=== PATIENT | female | born 1950 ===

== ENCOUNTER 2022-10-25 15:57 | Inpatient (IN) | payer OTHER ==
[2022-10-25] VITALS (14 sets, daily range): BP systolic 162–2220; BP diastolic 10–111
[~2022-10-25] VITALS: Ht 162.6 cm; Wt 45.8 kg
[2022-10-25 17:05] LABS: BASO % 0.4 % (0.0-1.0); EOS # 0.1 10*3/uL (0.0-0.4); EOS % 1.2 % (1.0-4.0); LYMPH # 1.6 10*3/uL (1.3-4.4); LYMPH % 23.4 % (27.0-41.0); MEAN CELL VOLUME 98.1 fl (81.0-99.0); MEAN CORPUSCULAR HGB 33.6 pg (27.0-31.0); MEAN CORPUSCULAR HGB CONC 34.3 g/dl (33.0-37.0); MEAN PLATELET VOLUME 10.3 fl (9.6-12.3); MONO # 0.6 10*3/uL (0.1-1.0); MONO % 8.1 % (3.0-9.0); NEUT # 4.5 10*3/uL (2.3-7.9); NEUT % 66.8 % (47.0-73.0); PLATELET COUNT AUTOMATED 207 10*3/uL (130-400); RED BLOOD COUNT 4.79 10*6/uL (4.10-5.10); RED CELL DISTRI WIDTH 12.6 % (0-14.5); WHITE BLOOD COUNT 6.8 10*3/uL (4.8-10.8)
[2022-10-25 17:34] LABS: ALKALINE PHOSPHATASE 103 U/L (46-116); BUN 10 mg/dl (9-23); CHLORIDE 104 mmol/L (98-107); POTASSIUM 4.2 mmol/L (3.4-5.1); SGPT/ALT 34 U/L (10-49); TOTAL PROTEIN 6.5 gm/dL (6.0-8.0)
[2022-10-25] MEDS ORDERED: Lopressor25 MG PO (18:35)
[2022-10-25] MEDS ORDERED: ASPIRIN ADULT L81 M1 PO (18:36)
[2022-10-25 19:29] LABS: BILIRUBIN Negative (Negative); BLOOD Negative (Negative); CLARITY Clear (Clear); COLOR Yellow (Yellow); GLUCOSE Negative (Negative); KETONE Trace (Negative); LEUKO ESTERASE Negative (Negative); NITRITE Negative (Negative); PH 7.5 (4.5-8.0); UROBILINOGEN 0.2 E.U./dl (0.0-1.0)
[2022-10-25 19:39] LABS: BACTERIA TRACE; EPITHELIAL CELLS 0-2; RBC 0-2 rbc/hpf (0-2); WBC 0-2 wbc/hpf (0-5)
[2022-10-26] VITALS (7 sets, daily range): BP systolic 112–188; BP diastolic 64–90
[2022-10-26 06:18] LABS: BASO % 0.6 % (0.0-1.0); EOS # 0.1 10*3/uL (0.0-0.4); EOS % 1.1 % (1.0-4.0); HEMATOCRIT 46.1 % (37.0-47.0); LYMPH # 1.8 10*3/uL (1.3-4.4); LYMPH % 26.2 % (27.0-41.0); MEAN CELL VOLUME 98.3 fl (81.0-99.0); MEAN CORPUSCULAR HGB 32.4 pg (27.0-31.0); MEAN PLATELET VOLUME 10.8 fl (9.6-12.3); MONO # 0.6 10*3/uL (0.1-1.0); NEUT # 4.4 10*3/uL (2.3-7.9); NEUT % 62.8 % (47.0-73.0); PLATELET COUNT AUTOMATED 213 10*3/uL (130-400); RED BLOOD COUNT 4.69 10*6/uL (4.10-5.10); RED CELL DISTRI WIDTH 12.9 % (0-14.5)
[2022-10-26 06:19] LABS: ALKALINE PHOSPHATASE 93 U/L (46-116); BUN 8 mg/dl (9-23); CHLORIDE 105 mmol/L (98-107); CHOLESTEROL 198 mg/dL (<200); FREE T4 1.19 ng/dl (0.89-1.76); LDL CHOLESTEROL 124 mg/dL (9-159); POTASSIUM 3.7 mmol/L (3.4-5.1); SGPT/ALT 26 U/L (10-49); THYROID STIM HORMONE (HS) 1.919 uIU/ml (0.550-4.780); TOTAL PROTEIN 5.9 gm/dL (6.0-8.0); TRIGLYCERIDES 102 mg/dl (<150)
[2022-10-27] VITALS: BP 122/58
[2022-10-27 08:00] VITALS: BP 124/62
[2022-10-27] MEDS ORDERED: NICODERM CQ1 EAC1 T (09:05)
[2022-10-27 11:00] VITALS: BP 120/60
== END 2022-10-27 15:35 | disposition home or self-care (01) | DRG 304 ==
LOC: ED 15:57 → EDHOLD 17:47 → 4E 17:47
PROVIDERS: Family Medicine; Student in an Organized Health Care Education/Training Program; ADMIT Emergency Medicine; ATTEND Emergency Medicine
DX: I16.1 Hypertensive emergency (principal); J96.01 Acute respiratory failure with hypoxia; D75.1 Secondary polycythemia; F17.210 Nicotine dependence, cigarettes, uncomplicated; I10 Essential (primary) hypertension; D72.810 Lymphocytopenia; Z71.6 Tobacco abuse counseling; Z90.710 Acquired absence of both cervix and uterus; Z88.0 Allergy status to penicillin; Z82.49 Family history of ischemic heart disease and other diseases of the circulatory system; Z79.82 Long term (current) use of aspirin; Z79.899 Other long term (current) drug therapy

== ENCOUNTER 2023-05-07 13:07 | Emergency (ER) | payer OTHER ==
[~2023-05-07] VITALS: Ht 162.5 cm; Wt 45.4 kg
[~2023-05-07 13:07] MED LIST: ASPIRIN ADULT L81 M1 PO; Lopressor25 MG PO; NICODERM CQ1 EAC1 T
[2023-05-07] MEDS ORDERED: LOSARTAN POTASS50 M1 PO (13:27)
[2023-05-07 13:51] LABS: BASO % 0.5 % (0.0-1.0); EOS # 0.1 10*3/uL (0.0-0.4); HEMATOCRIT 51.7 % (37.0-47.0); LYMPH # 1.4 10*3/uL (1.3-4.4); LYMPH % 19.5 % (27.0-41.0); MEAN CELL VOLUME 103.8 fl (81.0-99.0); MEAN CORPUSCULAR HGB 32.5 pg (27.0-31.0); MEAN CORPUSCULAR HGB CONC 31.3 g/dl (33.0-37.0); MEAN PLATELET VOLUME 10.2 fl (9.6-12.3); MONO # 0.6 10*3/uL (0.1-1.0); MONO % 7.9 % (3.0-9.0); NEUT # 5.2 10*3/uL (2.3-7.9); NEUT % 70.8 % (47.0-73.0); PLATELET COUNT AUTOMATED 202 10*3/uL (130-400); RED BLOOD COUNT 4.98 10*6/uL (4.10-5.10); RED CELL DISTRI WIDTH 13.1 % (0-14.5); WHITE BLOOD COUNT 7.3 10*3/uL (4.8-10.8)
[2023-05-07 14:13] LABS: ALKALINE PHOSPHATASE 91 U/L (46-116); BUN 8 mg/dl (9-23); CHLORIDE 102 mmol/L (98-107); POTASSIUM 4.4 mmol/L (3.4-5.1); SGPT/ALT 43 U/L (5-49); TOTAL PROTEIN 6.3 gm/dL (6.0-8.0)
[2023-05-07] MEDS ORDERED: LOSARTAN POTAS100 M1 PO (14:30)
== END 2023-05-07 14:46 | disposition home or self-care (01) ==
LOC: ED 13:07
PROVIDERS: Emergency Medicine
DX: I16.0 Hypertensive urgency (principal); Z88.0 Allergy status to penicillin; Z90.710 Acquired absence of both cervix and uterus; F17.210 Nicotine dependence, cigarettes, uncomplicated

== ENCOUNTER 2023-05-09 21:42 | Emergency (ER) | payer OTHER ==
[~2023-05-09] VITALS: Ht 160 cm; Wt 45.4 kg
[~2023-05-09 21:42] MED LIST changes: +LOSARTAN POTAS100 M1 PO; +LOSARTAN POTASS50 M1 PO
[2023-05-09 22:30] LABS: BASO % 0.4 % (0.0-1.0); EOS # 0.1 10*3/uL (0.0-0.4); EOS % 1.7 % (1.0-4.0); HEMATOCRIT 53.1 % (37.0-47.0); LYMPH # 1.9 10*3/uL (1.3-4.4); LYMPH % 26.8 % (27.0-41.0); MEAN CELL VOLUME 103.3 fl (81.0-99.0); MEAN CORPUSCULAR HGB 32.7 pg (27.0-31.0); MEAN CORPUSCULAR HGB CONC 31.6 g/dl (33.0-37.0); MEAN PLATELET VOLUME 10.3 fl (9.6-12.3); MONO # 0.8 10*3/uL (0.1-1.0); MONO % 10.6 % (3.0-9.0); NEUT # 4.3 10*3/uL (2.3-7.9); NEUT % 60.4 % (47.0-73.0); PLATELET COUNT AUTOMATED 204 10*3/uL (130-400); RED BLOOD COUNT 5.14 10*6/uL (4.10-5.10); RED CELL DISTRI WIDTH 13.1 % (0-14.5); WHITE BLOOD COUNT 7.1 10*3/uL (4.8-10.8)
[2023-05-09 22:41] LABS: ACT PARTIAL THROMBO TIME 30.7 SECONDS (20.0-32.1)
[2023-05-09 22:54] LABS: ALKALINE PHOSPHATASE 94 U/L (46-116); BUN 6 mg/dl (9-23); CHLORIDE 104 mmol/L (98-107); LIPASE 29 U/L (12-53); SGPT/ALT 37 U/L (5-49); TOTAL PROTEIN 6.5 gm/dL (6.0-8.0)
[2023-05-10] MEDS ORDERED: VISTARIL25 MG PO (01:30)
[2023-05-10] MEDS ORDERED: METOPROLOL TART50 M1 PO (22:13)
[2023-05-12] MEDS ORDERED: PREDNISONE10 MG PO (11:53)
[2023-05-12] MEDS ORDERED: DOXYCYCLINE HY100 M3 PO (11:53)
[2023-05-12] MEDS ORDERED: PROVENTIL HFA6.7 GM INH (12:13)
== END 2023-05-10 02:29 | disposition home or self-care (01) ==
LOC: ED 21:42
PROVIDERS: Internal Medicine
DX: I10 Essential (primary) hypertension (principal); R10.2 Pelvic and perineal pain; Z88.0 Allergy status to penicillin; Z90.710 Acquired absence of both cervix and uterus; F17.210 Nicotine dependence, cigarettes, uncomplicated